=== PATIENT | male | born 1995 ===

== ENCOUNTER 2017-07-14 23:43 | Emergency (ER) | payer OTHER ==
[~2017-07-14] VITALS: Ht 170.2 cm; Wt 77.7 kg
[2017-07-14 23:48] VITALS: TEMP 37; Ht 170.2 cm; Wt 77.7 kg
[2017-07-14] MEDS ORDERED: SODIUM CHLORIDE 0.9% 1000ML 1,000 ML IV STA (23:51)
[2017-07-14 23:59] LABS: HEMATOCRIT 43.8 % (42-52); HEMOGLOBIN 14.8 g/dL (14.0-18.0); MEAN CELL VOLUME 86.9 fL (80-100); MEAN CORPUSCULAR HEMOGLOBIN 29.4 pg (25-34); MEAN CORPUSCULAR HGB CONC 33.8 g/dl (32-36); MEAN PLATELET VOLUME 10.1 fL (7.4-10.4); PLATELET COUNT 310 K/uL (130-400); RED CELL DISTRIBUTION WIDTH CV 12.5 % (11.5-14.5); RED CELL DISTRIBUTION WIDTH SD 39.7 fL (36.4-46.3); WHITE BLOOD COUNT 12.69 K/uL (4.8-10.8)
--- NOTE | 2017-07-15 00:03 | EMERGENCY ROOM VISIT NOTE ---
History Report prepared by Naldo: Izzy Jones Under the Supervision of: Dr. Lucero Malone D.O. First contact with patient: 23:39 Chief Complaint: FALL Stated Complaint: SYNCOPE/ETOH History of Present Illness The patient is a 22 year old male who presents to the Emergency Room with complaints of persistent neck pain and numbness secondary to a fall [employer]. He states that he donated blood earlier today. He states that he had a brownie contaminated with marijuana. He states it was the first time he had marijuana in this form. Per EMS, the patient, the patient had one alcoholic drink at the 1st bar and then passed out. They report the patient fell backwards and hit the corner of a pool table. He states that he felt extremely dizzy prior to passing out. He states that he could not open his eyes or process anything before passing out. EMS notes the patient had LOC for approximately two minutes. He reports extreme sensitivity in his head, neck, and arms. He describes it as numbness. He reports less numbness in his legs. He believes this is secondary to the marijuana use. He denies any back pain. He states he had one a [place] iced tea. He is from [facility]. Per EMS, the patient was hypotensive. HPI is limited secondary to alcohol intoxication and drug use. Source of History: patient, EMS History Limited By: intoxication (alcohol and drug use) Onset: [employer] Position: neck Quality: numbness Timing: other (persistent) Associated Symptoms: + LOC, + numbness (head, neck, arms, and less in legs) , No back pain Note: Notes increased sensitivity to neck, head, and arms. Notes dizziness. Review of Systems ROS is limited secondary to alcohol intoxication and drug use. Past Medical & Surgical No other pertinent personal past medical history obtained. Family History Diabetes mellitus Social History Smoking Status: Never Smoker Smokeless Tobacco Use: No Alcohol Use: occasionally Drug Use: marijuana Marital Status: single Housing Status: lives with roommate Occupation Status: [employer] Current/Historical Medications No Active Prescriptions or Reported Meds Allergies Coded Allergies: No Known Allergies (Unverified , 07/15/17) Physical Exam Vital Signs Date Time Temp Pulse Resp B/P (MAP) Pulse Ox O2 Delivery O2 Flow Rate FiO2 07/15/17 02:09 89 20 127/79 99 07/15/17 01:29 80 18 106/60 98 Room Air 07/14/17 23:48 37.0 77 18 118/77 100 Room Air Physical Exam HEENT: Head - normocephalic and atraumatic. Pupils are equal, round, and reactive to light. Extraocular eye muscles are intact and sclera are anicteric. Ears - bilaterally patent canals with no evidence of hemotympanum. Nose - moist nasal mucosa without evidence of trauma or discharge. Mouth - moist buccal mucosa with no trauma to the teeth or signs of malocclusion. Neck: The cervical collar was temporarily removed while in-line stabilization was maintained. The neck is supple and there is pain to palpation over the midline cervical spine and no obvious step-offs or deformities. No hematoma. There is no JVD or tracheal deviation. Chest: There are no signs of deformities, contusions or abrasions to the chest wall. There is no obvious crepitus or paradoxical chest rise. Heart: Regular, rate, and rhythm. There is a normal S1 and S2 with no murmurs, clicks, or gallops appreciated. Lungs: Clear to auscultation bilaterally with no wheezes, rales, or rhonchi. Abdomen: Soft, completely nontender, nondistended, with good bowel sounds. There is no sign of trauma such as contusions, abrasions or penetrations. There are no palpable pulsatile masses or hepatosplenomegaly. There is no guarding, rigidity, or rebound noted. Pelvis: Stable to rock and compression. Extremities: No obvious trauma, deformities, contusions, or edema. There are easily palpable peripheral pulses. Neuro: The patient is awake and alert and easily able to follow commands. Muscle strength is 5 out of 5 in all 4 extremities. Otherwise, neuro exam is unremarkable. Back: The entire thoracic, lumbar, and sacral spine were palpated. There are no obvious step-offs or deformities noted. There are no obvious signs of trauma such as contusions abrasions penetrations noted to the back. Skin: Cold to touch. Medical Decision & Procedures ER Provider Diagnostic Interpretation: Radiology results as stated below per my review and the radiologist's interpretation: CT C SPINE: No evidence of fracture or malalignment. Radiologist: Ashutosh Bill MD Study ready at 00:54 and initial results transmitted at 00:58 CT HEAD: No ICH, mass effect or edema. No skull fracture. Radiologist: Ashutosh Bill MD Study ready at 00:52 and initial results transmitted at 00:53 Laboratory Results 07/14/17 23:32 07/14/17 23:32 Test 07/14/17 23:32 07/14/17 23:56 Red Blood Count 5.04 M/uL (4.7-6.1) Mean Corpuscular Volume 86.9 fL (80-100) Mean Corpuscular Hemoglobin 29.4 pg (25-34) Mean Corpuscular Hemoglobin Concent 33.8 g/dl (32-36) RDW Standard Deviation 39.7 fL (36.4-46.3) RDW Coefficient of Variation 12.5 % (11.5-14.5) Mean Platelet Volume 10.1 fL (7.4-10.4) Anion Gap 8.0 mmol/L (3-11) Est Creatinine Clear Calc Drug Dose 88.8 ml/min Estimated GFR () 96.9 Estimated GFR (Non- 83.6 BUN/Creatinine Ratio 11.7 (10-20) Calcium Level 8.3 mg/dl (8.5-10.1) Chemistry Specimen Hemolysis Ethyl Alcohol mg/dL 5.0 mg/dl (0-3) Laboratory results per my review. Medications Administered Medications (Trade) Dose Ordered Sig/Ward Route Start Time Stop Time Status Last Admin Dose Admin Sodium Chloride 1,000 ml @ 999 mls/hr Q1H1M STAT IV 07/14/17 23:51 07/15/17 00:51 DC 07/14/17 23:56 999 MLS/HR Procedure 2351: Ordered Sodium Chloride 1,000 ml @ 999 mls/hr IV. ECG Per My Interpretation Indication: other (trauma) Rate (beats per minute): 76 Rhythm: normal sinus Findings: nonspecific-ST abn, no acute ischemic change, no ectopy ED Course 2343: Past medical records reviewed. The patient was evaluated in room A9B. A complete history and physical exam was performed. IV lock was established. Labs were drawn as above. The patient was observed on the alarm security or surveillance monitor and pulse oximeter. 2351: Ordered Sodium Chloride 1,000 ml @ 999 mls/hr IV. He went for CT scan of the brain and cervical spine as described above. 0143: I reassessed the patient at this time. He feels better. I removed his collar. He has FROM of his neck. No pain with axial loading. I discussed the results and treatment plan with the patient. I answered all pertaining questions that he had. He expressed understanding and verbalized agreement. The patient will be discharged home. Medical Decision The patient is a 22 year old male who presents to the ED with a pain in his head and neck after a syncopal episode. Differential diagnosis includes c- spine fracture, cervical strain, skull fracture, intracranial trauma, syncope, dehydration, concussion, and marijuana abuse. Lab results showed: Alcohol 5.0. Normal renal function. Gluc 110. WBC 12.6. Stable H&H. This is a 22-year-old male patient who suffered a syncopal episode in a bar falling backwards and striking his head off the corner of a pool table. Did have a 2 minute loss of consciousness. Since that time, he has had pain in his head and neck. EMS transported the patient here with a c-collar in place. He went for CT scan of the brain and cervical spine as described above. The patient's blood alcohol level was very low. He continued to describe this skin sensitivity which he contributes to the marijuana use. I removed the patient cervical collar and repeated physical exam. Was completely unremarkable. Head Trauma GCS Score: 15 Medication Reconcilliation Current Medication List: was personally reviewed by me Blood Pressure Screening Patient's blood pressure: Normal blood pressure Impression Primary Impression: Syncope Additional Impression: Marijuana abuse Scribe Attestation The scribe's documentation has been prepared under my direction and personally reviewed by me in its entirety. I confirm that the note above accurately reflects all work, treatment, procedures, and medical decision making performed by me. Departure Information Dispostion Home / Self-Care Prescriptions No Active Prescriptions or Reported Meds Referrals No Doctor, Assigned (PCP) Forms HOME CARE DOCUMENTATION FORM, IMPORTANT VISIT INFORMATION Patient Instructions ED Marijuana Abuse, My [facility], Syncope, Syncope Causes Additional Instructions Rest. Use tylenol or motrin for pain Avoid using marijuana Follow up at [facility] if you have additional symptoms Problem Qualifiers Primary Impression: Syncope Syncope type: unspecified Qualified Codes: R55 - Syncope and collapse
[2017-07-15 00:29] LABS: CALCIUM 8.3 mg/dl (8.5-10.1); CREATININE 1.22 mg/dl (0.60-1.40); POTASSIUM 3.4 mmol/L (3.5-5.1)
[2017-07-15 02:09] VITALS: BP 127/79; PULSE 89; O2SAT 99
--- NOTE | 2017-07-15 05:52 | DIAGNOSTIC IMAGING REPORT ---
CERVICAL SPINE W/O CT DOSE: HISTORY: Trauma eval for trauma TECHNIQUE: Multiaxial CT images of the cervical spine were performed and reformatted in the sagittal and coronal plane without the use of contrast. A dose lowering technique was utilized adhering to the principles of ALARA. COMPARISON: None. FINDINGS: No fractures. No subluxation. Prevertebral soft tissues and the C1-C2 interval are intact. No pneumothorax. IMPRESSION: No fractures within the cervical spine. The above report was generated using voice recognition software. It may contain grammatical, syntax or spelling errors. Electronically signed by: Ruel De León M.D. 07/15/2017 5:50 AM Dictated Date/Time: 07/15/2017 5:50 AM
--- NOTE | 2017-07-15 05:54 | DIAGNOSTIC IMAGING REPORT ---
HEAD WITHOUT CONTRAST (CT) CT DOSE: 967.36 mGy.cm HISTORY: Trauma eval for trauma TECHNIQUE: Multiaxial CT images of the head were performed without the use of intravenous contrast. A dose lowering technique was utilized adhering to the principles of ALARA. Comparison: None. Findings: The paranasal sinuses and mastoid air cells are clear. The calvarium and skull base are intact. The ventricles and sulci are within normal limits. There is no mass, hematoma, midline shift, or acute infarct. Impression: No acute intracranial abnormality. The above report was generated using voice recognition software. It may contain grammatical, syntax or spelling errors. Electronically signed by: Ruel De León M.D. 07/15/2017 5:53 AM Dictated Date/Time: 07/15/2017 5:51 AM
== END 2017-07-15 02:10 | disposition home or self-care (01) ==
LOC: EDBD 23:43 → C.EDA 23:45
DX: R55 Syncope and collapse (principal); R51 Headache; M54.2 Cervicalgia; W19.XXXA Unspecified fall, initial encounter; W22.09XA Striking against other stationary object, initial encounter; Y92.89 Other specified places as the place of occurrence of the external cause; F12.10 Cannabis abuse, uncomplicated; R40.2412 Glasgow coma scale score 13-15, at arrival to emergency department